=== PATIENT | male | born 1995 | race Hispanic/Latino ===

== ENCOUNTER 2017-05-20 10:48 | Emergency (ER) | payer BC, OTHER ==
[2017-05-20] MEDS ORDERED: Sodium Chloride 0.9% 1,000 ML IV STA (11:06)
--- NOTE | 2017-05-20 11:06 | ED PDOC ---
Arrival/HPI - General Historian: Patient <Elias Davis - Last Filed: 05/20/17 15:47> <Sahil Woodard - Last Filed: 05/20/17 18:34> - General Chief Complaint: GI Problem Time Seen by Provider: 05/20/17 10:50 - History of Present Illness Narrative History of Present Illness (Text): 05/20/17 11:02 21 year old male, no pmh, nkda, complaining of abdominal pain/nausea/vomiting/ diarrhea started early this morning. Pt. stated that he had sandwich at work last night around 9pm, 5 hours later started to have nausea/vomiting/diarrhea early this morning around 1-2am this morning, having periumblical pain, no fever or chills, admits feeling fatigue and tired, no palpitation, no recent traveling, no numbness or tingling, no rash, no change in vision, no other medical or psychological complaints. (Elias Davis) Past Medical History - Provider Review Nursing Documentation Reviewed: Yes - Infectious Disease Hx of Infectious Diseases: None - Psychiatric Hx Substance Use: No - Surgical History Hx Orthopedic Surgery: Yes (right radius) Hx Tonsillectomy: Yes <Elias Davis - Last Filed: 05/20/17 15:47> Family/Social History - Physician Review Nursing Documentation Reviewed: Yes Family/Social History: Unknown Family HX Smoking Status: Never Smoked Hx Alcohol Use: Yes Frequency of alcohol use: Socially Hx Substance Use: No <Elias Davis - Last Filed: 05/20/17 15:47> Allergies/Home Meds <Elias Davis - Last Filed: 05/20/17 15:47> <Sahil Woodard - Last Filed: 05/20/17 18:34> Allergies/Adverse Reactions: Allergies No Known Allergies Allergy (Verified 05/20/17 11:01) Review of Systems - Review of Systems Constitutional: Fatigue. absent: Fevers Eyes: absent: Vision Changes ENT: absent: Hearing Changes Respiratory: absent: SOB, Cough Cardiovascular: absent: Chest Pain Gastrointestinal: Abdominal Pain, Diarrhea, Nausea, Vomiting Musculoskeletal: absent: Arthralgias, Back Pain Skin: absent: Rash, Pruritis Neurological: absent: Headache <Elias Davis - Last Filed: 05/20/17 15:47> Physical Exam - Systems Exam Head: Present: Atraumatic, Normocephalic Pupils: Present: PERRL Extroacular Muscles: Present: EOMI Conjunctiva: Present: Normal Mouth: Present: Moist Mucous Membranes Neck: Present: Normal Range of Motion Respiratory/Chest: Present: Clear to Auscultation, Good Air Exchange. No: Respiratory Distress, Accessory Muscle Use Cardiovascular: Present: Regular Rate and Rhythm, Normal S1, S2. No: Murmurs Abdomen: Present: Tenderness (periumbilical), Normal Bowel Sounds. No: Distention, Peritoneal Signs, Rebound, Guarding Back: Present: Normal Inspection Upper Extremity: Present: Normal Inspection. No: Cyanosis, Edema Lower Extremity: Present: Normal Inspection. No: Edema Neurological: Present: GCS=15, Speech Normal, Motor Func Grossly Intact, Gait Normal, Memory Normal Skin: Present: Warm, Dry, Normal Color. No: Rashes Psychiatric: Present: Alert, Oriented x 3, Normal Insight, Normal Concentration <Elias Davis - Last Filed: 05/20/17 15:47> Vital Signs Temp Pulse Resp BP Pulse Ox 05/20/17 16:19 90 17 122/70 99 05/20/17 13:22 97 H 16 142/79 100 05/20/17 11:18 98.2 F 104 H 18 126/79 97 Medical Decision Making - Lab Interpretations I have reviewed the lab results: Yes Interpretation: Abnormal lab values (BUN 25 and wbc 11.8) - RAD Interpretation Security Solutions Architect: Radiologist <Elias Davis - Last Filed: 05/20/17 15:47> <Sahil Woodard - Last Filed: 05/20/17 18:34> ED Course and Treatment: 05/20/17 11:07 -Labs/ua -IVF/pepcid/zofran -Observe and reassess 05/20/17 12:57 -Labs are non-significant except BUN 25 (IVF ordered) and wbc 11.8 (still has periumbilical pain persistent, clinically concerning for colitis vs. appendicitis, will order CT abdomen and pelvis) -Negative influenza. -Urinalysis is negative. -Pt. still has periumbilical tenderness and pain -IVF continued 05/20/17 16:05 -CT abdomen and pelvis show: No evidence of appendicitis or colitis. Mildly enlarged mesenteric lymph nodes in the right lower quadrant possible mesenteric adenitis -Pt. is afebrile, will cover with flagyl as he has no history of traveler diarrhea case. -Discharge home with flagyl, pepcid, zofran, motrin, bed rest, follow up with your own pmd and GI within 2 days, return to the Emergency room for any new or worsening signs or symptoms. (Elias Davis) - Lab Interpretations Lab Results: 05/20/17 11:40 05/20/17 11:40 Lab Results 05/20/17 12:35: Urine Color Yellow, Urine Appearance Clear, Urine pH 6.0, Ur Specific [place] 1.025, Urine Protein 30 H, Urine Glucose (UA) Negative, Urine Ketones Trace H, Urine Blood Negative, Urine Nitrate Negative, Urine Bilirubin Small H, Urine Urobilinogen 0.2, Ur Leukocyte Esterase Negative, Urine RBC 1 - 3 , Urine WBC 0 - 2, Ur Epithelial Cells 0 - 2 05/20/17 11:40: WBC 11.8 H, RBC 5.52, Hgb 17.3, Hct 49.3, MCV 89.3, MCH 31.3, MCHC 35.1, RDW 12.2, Plt Count 229, MPV 11.0, Gran % 93.5 H, Lymph % (Auto) 2.6 L, [place] % (Auto) 3.6, Eos % (Auto) 0.2 L, Baso % (Auto) 0.1, Gran # 11.03 H, Lymph # 0.3 L, [place] # 0.4, Eos # 0.0, Baso # 0.01, Neutrophils % (Manual) 87 H, Band Neutrophils % 4 H, Lymphocytes % (Manual) 5 L, Monocytes % (Manual) 4 05/20/17 11:40: Sodium 143, Potassium 4.9, Chloride 102, Carbon Dioxide 27, Anion Gap 19, BUN 25 H, Creatinine 1.0, Est GFR ( Amer) > 60, Est GFR ( Non-Af Amer) > 60, Random Glucose 147 H, Calcium 10.2, Magnesium 1.7, Total Bilirubin 1.1, AST 33, ALT 56, Alkaline Phosphatase 72, Total Protein 8.4 H, Albumin 5.2 H, Globulin 3.3, Albumin/Globulin Ratio 1.6, Lipase 34 05/20/17 11:40: Influenza Typ A,B (EIA) Negative for flu a/b - RAD Interpretation Radiology Orders: 05/20/17 12:31 ABDOMEN & PELVIS [ABD PELVIS PO & IV CONTRAST] [CT] Stat PROCEDURE: CT Abdomen and Pelvis with contrast HISTORY: periumbilical pain/vomiting/diarrhea/elevation wbc COMPARISON: None. TECHNIQUE: Contrast dose: 100 cc of Omni 350 Radiation dose: Total exam DLP = 706 mGy-cm. This CT exam was performed using one or more of the following dose reduction techniques: Automated exposure control, adjustment of the mA and/or kV according to patient size, and/or use of iterative reconstruction technique. FINDINGS: LOWER THORAX: Unremarkable. LIVER: Unremarkable. No gross lesion or ductal dilatation. GALLBLADDER AND BILE DUCTS: Unremarkable. PANCREAS: Unremarkable. No gross lesion or ductal dilatation. SPLEEN: Unremarkable. ADRENALS: Unremarkable. No mass. KIDNEYS AND URETERS: Unremarkable. No hydronephrosis. No solid mass. VASCULATURE: Unremarkable. No aortic aneurysm. BOWEL: Unremarkable. No obstruction. No gross mural thickening. APPENDIX: No evidence of appendicitis PERITONEUM: Unremarkable. No free fluid. No free air. LYMPH NODES: Several mildly enlarged lymph nodes are seen in the right lower quadrant the largest measuring 7 mm in diameter. This is frequently seen in this age group. This could also represent mesenteric adenitis. BLADDER: Unremarkable. REPRODUCTIVE: Unremarkable. BONES: No acute fracture. OTHER FINDINGS: None. IMPRESSION: No evidence of appendicitis or colitis. Mildly enlarged mesenteric lymph nodes in the right lower quadrant possible mesenteric adenitis (Elias Davis) - Medication Orders Current Medication Orders: Discontinued Medications Famotidine (Pepcid) 20 mg PO STAT STA Stop: 05/20/17 11:07 Last Admin: 05/20/17 11:35 Dose: 20 mg Sodium Chloride (Sodium Chloride 0.9%) 1,000 mls @ 999 mls/hr IV .Q1H1M STA Stop: 05/20/17 12:06 Last Admin: 05/20/17 11:30 Dose: 999 mls/hr eMAR Start Stop Document 05/20/17 11:30 RD (Rec: 05/20/17 11:44 [facility] [id number] Intravenous Solution Start Date 05/20/17 Start Time 11:30 End Date 05/20/17 End time 12:30 Total Infusion Time 60 Sodium Chloride (Sodium Chloride 0.9%) 1,000 mls @ 500 mls/hr IV .Q2H CARLIE Last Admin: 05/20/17 13:17 Dose: 500 mls/hr eMAR Start Stop Document 05/20/17 13:17 RD (Rec: 05/20/17 13:17 [facility] [id number] Intravenous Solution Start Date 05/20/17 Start Time 13:17 Ondansetron HCl (Zofran Inj) 4 mg IVP STAT STA Stop: 05/20/17 11:07 Last Admin: 05/20/17 11:32 Dose: 4 mg IVP Administration Document 05/20/17 11:32 RD (Rec: 05/20/17 11:44 [facility] [id number] Charges for Administration # of IVP Administrations 1 Ondansetron HCl (Zofran Inj) 4 mg IVP STAT STA Stop: 05/20/17 14:24 Last Admin: 05/20/17 14:25 Dose: 4 mg IVP Administration Document 05/20/17 14:25 RD (Rec: 05/20/17 14:25 [facility] [id number] Charges for Administration # of IVP Administrations 1 - PA / KILN PUSHER / Resident Statement [place] has reviewed & agrees with the documentation as recorded. <Elias Davis - Last Filed: 05/20/17 15:47> - PA / KILN PUSHER / Resident Statement [place] has reviewed & agrees with the documentation as recorded. <Sahil Woodard - Last Filed: 05/20/17 18:34> Disposition/Present on Arrival - Present on Arrival Any Indicators Present on Arrival: No History of DVT/PE: No History of Uncontrolled Diabetes: No Urinary Catheter: No History of Decub. Ulcer: No History Surgical Site Infection Following: None - Disposition Have Diagnosis and Disposition been Completed?: Yes Disposition Time: 16:07 Patient Plan: Discharge <Elias Davis - Last Filed: 05/20/17 15:47> <Saihl Woodard - Last Filed: 05/20/17 18:34> - Disposition Diagnosis: Dehydration, Mesenteric adenitis, Abdominal pain Disposition: HOME/ ROUTINE Condition: IMPROVED Additional Instructions: -Discharge home with flagyl, pepcid, zofran, motrin, bed rest, follow up with your own pmd and GI within 2 days, return to the Emergency room for any new or worsening signs or symptoms. Prescriptions: Famotidine [Pepcid] 20 mg PO BID #20 tab Ibuprofen [Motrin] 600 mg PO TID PRN #20 tab PRN Reason: Other Metronidazole [Flagyl] 500 mg PO TID #21 tablet Ondansetron [Zofran] 4 mg PO Q8H PRN #12 tab PRN Reason: Other Referrals: Haroldo Galvez MD [Staff Provider] - Follow up with primary Forms: WORK NOTE
[2017-05-20 11:18] VITALS: TEMP 98.2
[2017-05-20 11:56] LABS: ALKALINE PHOSPHATASE 72 U/L (38-126); ALT/SGPT 56 U/L (7-56); AST/SGOT 33 U/L (17-59); BILIRUBIN,TOTAL 1.1 mg/dL (0.2-1.3); BLOOD UREA NITROGEN 25 mg/dL (7-21); CALCIUM 10.2 mg/dL (8.4-10.5); CARBON DIOXIDE 27 mmol/L (21-33); CHLORIDE 102 mmol/L (98-107); GFR AFRICAN-AMERICAN > 60; GLUCOSE,RANDOM 147 mg/dL (70-110); LIPASE 34 U/L (23-300); MAGNESIUM 1.7 mg/dL (1.7-2.2); POTASSIUM 4.9 mmol/L (3.6-5.0); SODIUM 143 mmol/L (132-148); TOTAL PROTEIN 8.4 g/dL (5.8-8.3)
[2017-05-20 12:17] LABS: ALB/GLOB RATIO 1.6 (1.1-1.8)
[2017-05-20 12:20] LABS: BASO # 0.01 K/mm3 (0.0-2.0); BASO % 0.1 % (0.0-3.0); EOS % 0.2 % (1.5-5.0); GRAN # 11.03 (1.4-6.5); GRAN % 93.5 % (50.0-68.0); HEMATOCRIT 49.3 % (42.0-52.0); LYMPH # 0.3 (1.2-3.4); LYMPH % 2.6 % (22.0-35.0); MEAN CELL VOLUME 89.3 fl (80.0-105.0); MEAN CORPUSCULAR HEMOGLOBIN 31.3 pg (25.0-35.0); MEAN CORPUSCULAR HGB CONC 35.1 g/dl (31.0-37.0); MONO # 0.4 (0.1-0.6); MONO % 3.6 % (1.0-6.0); PLATELET COUNT 229 10^3/uL (120.0-450.0); RED CELL DISTRIBUTION WIDTH 12.2 % (11.5-14.5); WHITE BLOOD COUNT 11.8 10^3/ul (4.5-11.0)
[2017-05-20 12:45] LABS: URINE BILIRUBIN SMALL (NEGATIVE); URINE BLOOD NEGATIVE (NEGATIVE); URINE GLUCOSE (UA) NEGATIVE (NEGATIVE); URINE KETONE TRACE mg/dL (NEGATIVE); URINE LEUKOCYTE ESTERASE NEGATIVE Leu/uL (NEGATIVE); URINE PROTEIN 30 mg/dL (<30 mg/dL); URINE UROBILINOGEN 0.2 E.U./dL (<1 E.U./dL)
[2017-05-20] MEDS ORDERED: Sodium Chloride 0.9% 1,000 ML IV SCH (12:45)
[2017-05-20 12:48] LABS: URINE APPEARANCE CLEAR (CLEAR); URINE COLOR YELLOW (YELLOW)
[2017-05-20 12:49] LABS: BAND 4 % (0-2); NEUTROPHIL 87 % (50.0-70.0)
[2017-05-20] MEDS ORDERED: Iohexol 240 (50 ml) ONE (12:52)
[2017-05-20 13:36] LABS: URINE EPITHELIAL CELLS 0 - 2 /hpf (0-5); URINE WBC 0 - 2 /hpf (0-6)
--- NOTE | 2017-05-20 15:33 | CT ---
PROCEDURE: CT Abdomen and Pelvis with contrast HISTORY: periumbilical pain/vomiting/diarrhea/elevation wbc COMPARISON: None. TECHNIQUE: Contrast dose: 100 cc of Omni 350 Radiation dose: Total exam DLP = 706 mGy-cm. This CT exam was performed using one or more of the following dose reduction techniques: Automated exposure control, adjustment of the mA and/or kV according to patient size, and/or use of iterative reconstruction technique. FINDINGS: LOWER THORAX: Unremarkable. LIVER: Unremarkable. No gross lesion or ductal dilatation. GALLBLADDER AND BILE DUCTS: Unremarkable. PANCREAS: Unremarkable. No gross lesion or ductal dilatation. SPLEEN: Unremarkable. ADRENALS: Unremarkable. No mass. KIDNEYS AND URETERS: Unremarkable. No hydronephrosis. No solid mass. VASCULATURE: Unremarkable. No aortic aneurysm. BOWEL: Unremarkable. No obstruction. No gross mural thickening. APPENDIX: No evidence of appendicitis PERITONEUM: Unremarkable. No free fluid. No free air. LYMPH NODES: Several mildly enlarged lymph nodes are seen in the right lower quadrant the largest measuring 7 mm in diameter. This is frequently seen in this age group. This could also represent mesenteric adenitis. BLADDER: Unremarkable. REPRODUCTIVE: Unremarkable. BONES: No acute fracture. OTHER FINDINGS: None. IMPRESSION: No evidence of appendicitis or colitis. Mildly enlarged mesenteric lymph nodes in the right lower quadrant possible mesenteric adenitis
[2017-05-20 16:20] VITALS: BP 122/70; PULSE 90; RESP 17; O2SAT 99
== END 2017-05-20 16:19 | disposition home or self-care (01) ==
LOC: ED 10:48
DX: I88.0 Nonspecific mesenteric lymphadenitis (principal); E86.0 Dehydration; R10.9 Unspecified abdominal pain
CPT/HCPCS: 74177; 80053; 81001; 83690; 83735; 85025; 87804; 96361; 96374; 96375; 99283; J2405; J7040; Q9966